=== PATIENT | male | born 1985 | race Caucasian/White ===

== ENCOUNTER 2018-06-18 03:41 | Observation (INO) | payer OTHER ==
[2018-06-18] MEDS ORDERED: Ondansetron HCl/PF 4 MG/2 ML Vial ONE ×2 (04:04→05:52)
[2018-06-18] MEDS ORDERED: Sodium Chloride 0.9% 1,000 ML ONE (04:04)
[2018-06-18] MEDS ORDERED: Ondansetron ODT 4 MG TAB ONE (04:45)
[2018-06-18 05:36] LABS: #Basophils 0.2 thou/uL (0.0-0.2); #Lymphocytes 1.2 thou/uL (1.20-3.40); #Monocytes 0.7 thou/uL (0.11-0.59); #Neutrophils 14.9 thou/uL (1.40-6.50); %Basophils 0.9 % (0.0-1.0); %Lymphocytes 6.8 % (21.0-51.0); %Neutrophils 88.3 % (42.0-75.0); Mean Corpuscular HGB CONC 31.6 g/dL (32.0-36.0); Mean Corpuscular Hemoglobin 28.1 pg (27.0-31.0); Mean Platelet Volume 7.6 fL (7.4-10.4); Platelet Count 341 thou/uL (130-400); RBC Distribution Width 13.6 % (11.5-14.5); Red Blood Cell (RBC) Count 4.99 mill/uL (4.70-6.10); White Blood Cell (WBC) Count 16.9 thou/uL (4.8-10.8)
[2018-06-18 05:50] LABS: ALT (SGPT) 40 U/L (8-55); AST (SGOT) 29 U/L (5-34); Albumin 4.6 g/dL (3.5-5.0); Alkaline Phosphatase 136 U/L (40-150); Anion Gap 16 mmol/L (10-20); BUN (Urea Nitrogen) 14 mg/dL (8.9-20.6); Bilirubin, Total 0.3 mg/dL (0.2-1.2); Calc. Creatinine Clearance 0 mL/min (70-130); Calcium 9.7 mg/dL (7.8-10.44); Carbon Dioxide 21 mmol/L (22-29); Chloride 106 mmol/L (98-107); Estimated GFR-MDRD 77; Globulin 4.1 g/dL (2.4-3.5); Glucose 198 mg/dL (70-105); Lipase 7 U/L (8-78); Potassium 4.6 mmol/L (3.5-5.1); Protein, Total 8.7 g/dL (6.0-8.3); Sodium 138 mmol/L (136-145)
[2018-06-18] MEDS ORDERED: Fentanyl 100 MCG/2 ML VIAL ONE ×2 (06:08→09:00)
[2018-06-18] MEDS ORDERED: Haloperidol Lactate 5 MG/ML VIAL ONE (07:29)
[2018-06-18] MEDS ORDERED: Promethazine HCl 25 MG/ML VIAL ONE (07:39)
--- NOTE | 2018-06-18 08:51 | CT ---
ABDOMEN AND PELVIC CT WITH CONTRAST: HISTORY: Nausea and vomiting postprandial, abdominal pain. COMPARISON: No prior imaging comparison. FINDINGS: No significant pathology at the lung bases, where visualized. Visualized distal esophagus is patulou s. There is a small hypodensity involving the superior aspect of the lateral segment left hepatic lo be too small to further characterize. Otherwise, solid abdominal organs reveal no significant pathol ogy. The bowel is incompletely evaluated without any enteric contrast. Moderately distended urinary bladder is grossly unremarkable. Aorta is normal in caliber where visualized. No acute osseous pat hology is seen. The gallbladder is surgically absent. IMPRESSION: 1. Vague hypodensity involving the lateral segment left hepatic lobe. This may reflect cavernous he mangioma, although is not definitively characterized on this exam. Recommend followup hemangioma pro tocol MRI abdomen for further assessment. 2. No acute process is evident. CODE T POS: LEON
[2018-06-18] MEDS ORDERED: Iopamidol 370 76% 100 ML VIAL ONE (09:00)
[2018-06-18 10:59] VITALS: BMI 42.9
[2018-06-18] MEDS ORDERED: Ondansetron HCl/PF 4 MG/2 ML Vial IVP PRN (12:19)
[2018-06-18] MEDS ORDERED: Promethazine HCl 25 MG/ML VIAL SLOW IVP PRN (12:20)
[2018-06-18] MEDS ORDERED: Dextrose 5 %-0.45 % NaCl 1,000 ML IV SCH (12:30)
[2018-06-18] MEDS ORDERED: Acetaminophen 650 MG Suppository PR PRN (13:20)
[2018-06-18] MEDS: fentaNYL 50 mcg/hour Patch TD SCH ×2 (13:55→16:12)
[2018-06-18 17:20] VITALS: BP 135/79; TEMP 98.4
--- NOTE | 2018-06-19 02:46 | HP ---
DATE OF ADMISSION: 06/18/2018 DATE OF TRANSFER: 06/18/2018 HISTORY OF PRESENT ILLNESS: Mr. Duarte is a 33-year-old inmate was transferred to [facility] Emergency Room after apparently 11 hours after eating a hamburger esther and resulting bloating and cramping. Seen in the emergency room, given fentanyl 50 along with Phenergan 25 and then given fent anyl 100 along with Zofran 8 mg for nausea, vomiting, and intractable abdominal pain. CT scan was un remarkable. White count was slightly elevated. The patient does not have an acute abdomen. The pat ieyuridia was admitted to observation my service since I was solutions consultant. I saw the patient approximately 1:0 0. The patient had what he describes intractable abdominal pain and was requesting pain medication. In the emergency room, he gotten fentanyl. The patient was n.p.o. because of abdominal pain, so our only option was medications that are IV. Unfortunately, the patient is allergic to all OPIOIDS, MOR PHINE, ANALOGS, PHENOTHIAZINES, PHENYLPIPERAZINE, ANTIDEPRESSANTS ZIPRASIDONE, and METOCLOPRAMIDE. T he patient states the only medicines he can take Dilaudid and fentanyl. Unfortunately, the [facility] is unable to give IV fentanyl or Dilaudid. It also was felt that the patient ne eded GI consult, so it was felt the patient needed a higher level of care. Residency up in [place] was contacted. I talked with Dr. Carson Townsend and he was kind enough to accept the patient. PAST MEDICAL HISTORY: Reveals the patient has a history of gastrointestinal disease, GERD, gastropar esis, hypertension, diaphragmatic hernia, and seizures. PAST SURGICAL HISTORY: Reveals the patient had an appendectomy, cholecystectomy, hiatal hernia repai r, left testicular torsion removed. SOCIAL HISTORY: Reveals patient is in [facility]. Denies alcohol use, denies any drug use. Denies any smoking. ALLERGIES: Reveals the patient is allergic to METOCLOPRAMIDE, OPIOIDS, MORPHINE, ANALOGS, PHENOTHIAZ SANDRA, FENTANYL, PHENYLPIPERAZINE, ANTIDEPRESSANT, ZIPRASIDONE. PRESENT MEDICATIONS: Reveal the patient on: 1. Amlodipine 5 mg daily. 2. Abilify 10 mg daily. 3. Benadryl 50 mg b.i.d. 4. Duloxetine 30 mg once a day. 5. Fluoxetine 20 mg daily. 6. Lactulose 10 grams per 15 mL and patient takes 30 mL twice daily. 7. Omeprazole 20 mg once a day. 8. Dilantin 100 mg once in the evening. 9. Verapamil 180 mg once a day. REVIEW OF SYSTEMS: Reveal the patient denies any fever or chills, but complains of achy, abdominal c rampy, pressure-type stabbing pain. He states it has been going on 10-11 hours ever since he ate kim e type of a hamburger esther. Patient denies any chest pain. patient denies any respiratory pain. T he patient admits to abdominal pain, which he says in all four quadrants. There is nausea with it an d vomiting with it and apparently he had constant dry heaves. He has not had any diarrhea or constip ation. It is acute onset. The patient denies any urinary symptoms or complaints. The patient denie s any extremity complaints. PHYSICAL EXAMINATION: GENERAL: This is a well-developed, well-nourished, black male. He complains of pain 9-10/10 mainly around his abdomen and at time hovers out. HEENT: Reveals normocephalic, nontraumatic cranium. Pupils are equally round and reactive. Extraoc ular movements are intact. Nose and throat are slightly dry, but clear. NECK: Supple, without masses, nodes or bruits. CHEST: Clear to auscultation. No rales, no rhonchi, no wheezes are heard. HEART: Reveals a regular rate and rhythm. ABDOMEN: Reveals the patient complains of pain and tenderness all over. He is not able to tolerate any deep palpation. Bowel sounds are not heard at this time. The patient has no rigidity, but he bearden s some guarding. He has no rebound noted. GENITOURINARY: Deferred. EXTREMITIES: Reveal no clubbing, cyanosis, or edema. NEUROLOGIC: Patient is oriented to person, place, and time. LABORATORY AND DIAGNOSTIC DATA: CT scan was done which was reported to me by the ER physician as micaela ng unremarkable. White count was noted be 16,900, H&H was 14.0 and 44.4. Platelet count was 341,000 . Lipase was 7. Sodium 138, potassium 4.6, chloride 106, carbon dioxide 21 with a creatinine is 1.0 4 and a BUN of 14. GFR is estimated at 77. Sugar was 198. AST was 29, ALT was 40. ASSESSMENT: 1. Acute onset of abdominal pain seen in the face of prior diagnosis from [facility]. The patient states that this is exactly how his gastroparesis episodes usually are. 2. History of hypertension. 3. History of anxiety, depressive disorder, and bipolar. 4. History of gastroesophageal reflux disease. 5. History of gastroparesis. 6. History of gastritis. 7. History of diaphragmatic hernia. 8. History of schizophrenia, bipolar, and anxiety. PLAN: Unfortunately, [facility] has no access to IV fentanyl or Dilaudid. The patient nee ds further GI workup and therefore I contacted [facility]. Dr. Ramu hung accepted the patient for transfer and he will be transferred there emergently.
== END 2018-06-18 17:05 | disposition short-term general hospital (02) ==
LOC: NAV ERS 03:41 → NAV ACUTE 10:25
PROVIDERS: ADMIT Family Medicine; ATTEND Family Medicine
DX: K31.84 Gastroparesis (principal); K21.9 Gastro-esophageal reflux disease without esophagitis; I10 Essential (primary) hypertension; R56.9 Unspecified convulsions; F41.9 Anxiety disorder, unspecified; F31.9 Bipolar disorder, unspecified; F20.9 Schizophrenia, unspecified; Z79.899 Other long term (current) drug therapy; Z88.4 Allergy status to anesthetic agent; Z88.5 Allergy status to narcotic agent; Z88.8 Allergy status to other drugs, medicaments and biological substances
CPT/HCPCS: 74177; 80053; 83690; 85025; 96360; 96361; 96374; 96375; 96376; G0378; J1630; J2405; J2550; J3010; J7042; J7050; Q0162

== ENCOUNTER 2018-07-16 22:49 | Emergency (ER) | payer OTHER ==
[2018-07-16] MEDS ORDERED: Fentanyl 100 MCG/2 ML VIAL ONE (23:39)
[2018-07-16] MEDS ORDERED: Sodium Chloride 0.9% 1,000 ML ONE (23:39)
[2018-07-16] MEDS ORDERED: Ondansetron HCl/PF 4 MG/2 ML Vial ONE (23:39)
[2018-07-16 23:45] LABS: #Basophils 0.1 thou/uL (0.0-0.2); #Lymphocytes 0.9 thou/uL (1.20-3.40); #Monocytes 0.7 thou/uL (0.11-0.59); #Neutrophils 6.9 thou/uL (1.40-6.50); %Basophils 1.5 % (0.0-1.0); %Eosinophils 0.1 % (0.0-10.0); %Lymphocytes 10.2 % (21.0-51.0); %Monocytes 8.5 % (0.0-10.0); %Neutrophils 79.7 % (42.0-75.0); Hemoglobin 13.9 g/dL (14.0-18.0); Mean Corpuscular HGB CONC 31.9 g/dL (32.0-36.0); Mean Corpuscular Volume 87.8 fL (78.0-98.0); Platelet Count 299 thou/uL (130-400); RBC Distribution Width 13.8 % (11.5-14.5); Red Blood Cell (RBC) Count 4.94 mill/uL (4.70-6.10); White Blood Cell (WBC) Count 8.7 thou/uL (4.8-10.8)
[2018-07-16 23:57] LABS: ALT (SGPT) 68 U/L (8-55); AST (SGOT) 37 U/L (5-34); Albumin 4.3 g/dL (3.5-5.0); Alkaline Phosphatase 128 U/L (40-150); Anion Gap 16 mmol/L (10-20); BUN (Urea Nitrogen) 13 mg/dL (8.9-20.6); Bilirubin, Total 0.5 mg/dL (0.2-1.2); Calc. Creatinine Clearance 0 mL/min (70-130); Calcium 9.2 mg/dL (7.8-10.44); Carbon Dioxide 25 mmol/L (22-29); Chloride 100 mmol/L (98-107); Estimated GFR-MDRD Greater than 90; Globulin 3.6 g/dL (2.4-3.5); Glucose 138 mg/dL (70-105); Lipase 11 U/L (8-78); Potassium 3.3 mmol/L (3.5-5.1); Protein, Total 7.9 g/dL (6.0-8.3); Sodium 138 mmol/L (136-145)
[2018-07-17] MEDS ORDERED: Ondansetron ODT 4 MG TAB ONE (00:40)
[2018-07-17] MEDS ORDERED: Benzocaine 20% Spray 60 ML CAN ONE (02:01)
== END 2018-07-17 02:50 | disposition short-term general hospital (02) ==
LOC: NAV ERS 22:49
DX: K31.84 Gastroparesis (principal); E87.6 Hypokalemia; K21.9 Gastro-esophageal reflux disease without esophagitis; I10 Essential (primary) hypertension; F41.9 Anxiety disorder, unspecified; F31.9 Bipolar disorder, unspecified; F20.9 Schizophrenia, unspecified; Z79.899 Other long term (current) drug therapy
CPT/HCPCS: 80053; 83605; 83690; 85025; 96361; 96374; 96375; 96376; J2405; J3010; J7050; Q0162

== ENCOUNTER 2018-08-05 04:01 | Emergency (ER) | payer OTHER ==
[2018-08-05] MEDS ORDERED: Ondansetron PF 4 MG/2 ML Vial ONE (05:38)
== END 2018-08-05 07:10 ==
LOC: NAV ERS 04:01
DX: R11.2 Nausea with vomiting, unspecified (principal); F41.9 Anxiety disorder, unspecified; R07.9 Chest pain, unspecified; K21.9 Gastro-esophageal reflux disease without esophagitis; I10 Essential (primary) hypertension; F31.9 Bipolar disorder, unspecified; F20.9 Schizophrenia, unspecified; Z79.899 Other long term (current) drug therapy
CPT/HCPCS: J2405